=== PATIENT | male | born 1955 | race Two or more races ===

== ENCOUNTER 2019-04-09 13:21 | Inpatient (IN) | payer MEDICARE, MEDICAID ==
[~2019-04-09] VITALS: Ht 175.3 cm; Wt 72.1 kg
--- NOTE | 2019-04-09 13:25 | NUR ---
Pt is under 1:1 supervision by senior network security architect.
--- NOTE | 2019-04-09 14:11 | NUR ---
PT REFUSED XRAY, DR GRIGSBY AWARE.
[2019-04-09 14:19] LABS: BASOPHILS % (AUTO) 0.8 % (0.0-2.0); EOSINOPHILS # (AUTO) 0.1 K/uL (0.0-0.7); HEMATOCRIT 44.1 % (36.7-47.1); HEMOGLOBIN 14.8 g/dL (12.5-16.3); LYMPHOCYTES % (AUTO) 21.4 % (20.5-51.5); MEAN CORPUSCULAR HEMOGLOBIN 32.1 uug (23.8-33.4); MEAN CORPUSCULAR HGB CONC 34 g/dL (32.5-36.3); MEAN CORPUSCULAR VOLUME 95.5 fL (73.0-96.2); MONOCYTES # (AUTO) 0.6 K/uL (2.0-10.0); MONOCYTES % (AUTO) 11.4 % (0.0-11.0); NEUTROPHILS # (AUTO) 3.1 K/uL (1.8-8.9); NEUTROPHILS % (AUTO) 63.4 % (38.5-71.5); PLATELET COUNT (AUTO) 136 K/uL (152-348); RED BLOOD CELL COUNT(AUTO) 4.61 MIL/uL (4.06-5.63); WHITE BLOOD COUNT (AUTO) 4.9 K/uL (3.6-10.2)
[2019-04-09 14:27] LABS: CREATININE 0.7 mg/dL (0.6-1.3); POTASSIUM 4.4 mmol/L (3.5-5.1)
[2019-04-09 14:29] LABS: ETHANOL < 3 MG/DL (0-0)
[2019-04-09 14:32] LABS: BILIRUBIN,DIRECT 0.1 mg/dL (0.0-0.2); BILIRUBIN,TOTAL 0.4 mg/dL (0.2-1.0)
[2019-04-09 14:35] LABS: *AMPHETAMINE, URINE NEGATIVE (NEGATIVE); *BARBITURATE, URINE NEGATIVE (NEGATIVE); *CANNABINOID, URINE NEGATIVE (NEGATIVE); *COCCAINE, URINE NEGATIVE (NEGATIVE); *OPIATE, URINE NEGATIVE (NEGATIVE); *PHENCYCLIDINE SCREEN,URINE NEGATIVE (NEGATIVE)
--- NOTE | 2019-04-09 14:53 | NUR ---
pending lab results & medical clearance by our ER doctor @this time
[2019-04-09] MEDS ORDERED: ESCI5TAB PO (15:13)
[2019-04-09] MEDS ORDERED: RISP3TAB5 PO (15:13)
[2019-04-09] MEDS ORDERED: LORA-259 PO (15:13)
[2019-04-09 15:45] VITALS: BP 102/57
--- NOTE | 2019-04-09 15:45 | NUR ---
Gps/Needle Grader- Admitted a 64 years old male via wheel chair from ER with the complaints received from her sister Erika, patient refusing to take his medications, not sleeping, uncooperative , not seeing his Psychiatrist ( Dr Svitlana Castle [phone]), refusing to bathed/shower, guarded, irritable , secretive.Patient refused to answer questions during assessments, patient's sister, Erika who is the conservator answered some of the questions. When tried to weigh patient , stated" do not dare to touch me". Report received from Jill LORENZO RN . PT ambulatory, redirected to his room. Oriented to unit settings. Routine admission care done.
[2019-04-09] MEDS ORDERED: LORAZEPAM 0.5 MG TABLET PO PRN (16:30)
[2019-04-09] MEDS ORDERED: TEMAZEPAM 7.5 MG CAPSULE PO PRN (16:30)
[2019-04-09] MEDS ORDERED: MAGNESIUM HYDROXIDE 30 ML LIQUID UDC PO PRN (17:15)
[2019-04-09] MEDS ORDERED: ACETAMINOPHEN 325 MG TABLET PO PRN (17:15)
[2019-04-09 19:46] VITALS: BP 111/66
--- NOTE | 2019-04-10 05:46 | NUR ---
GPS: Remain calm and cooperative. ambulatory self care. no agitation noted.resting in bed comfortably. slept 7:45 hrs through the night.
[2019-04-10 07:30] VITALS: BP 98/57
[2019-04-10] MEDS: risperiDONE 0.5 MG TABLET PO SCH ×2 (13:02→21:15)
[2019-04-10] MEDS: BENZTROPINE MESYLATE 0.5 MG TABLET PO SCH ×2 (13:02→17:29)
--- NOTE | 2019-04-10 15:27 | NUR ---
Initial Discharge Plan: Patient is a 64 year old male who currently lives at home [[address], [address], [place] [address]] with his sister/LPS Conservator, Erika Hooker [ ]. Per Erika, she would like patient to either go to snf facility or an assisted living. warehouse assembly worker will continue to collaborate with patient, LPS Conservator, and MD on a safe and proper discharge.
[2019-04-10 16:00] VITALS: BP 98/55
--- NOTE | 2019-04-10 18:18 | NUR ---
Gps/Manufacturing Technologist- Compliant with his routine meds. isolative, not interactive, encouraged to eat in the dinning room ,refused.
--- NOTE | 2019-04-10 20:00 | NUR ---
RECEIVED PATIENT IN HIS ROOM SITTING IN HIS BED.HE IS NOTED A/O X1. POOR HISTORIAN. POOR INSIGHT NOTED INTO THE REASON FOR HIS ADMISSION TO MHU. FLAT AFFECT, ISOLATIVE, WITHDRAWN. UPON INTERVIEW, PATIENT KEPT STATING, "NO THANK YOU, NO THANK YOU". PATIENT WAS REASSURED FOR HIS SAFETY. V/S STABLE AT THIS TIME. WILL CONTINUE TO MONITOR.
[2019-04-10 22:00] VITALS: BP 99/60
[2019-04-11 07:30] VITALS: BP 101/64
[2019-04-11] MEDS: risperiDONE 0.5 MG TABLET PO SCH ×3 (08:54→20:24)
[2019-04-11] MEDS: BENZTROPINE MESYLATE 0.5 MG TABLET PO SCH ×2 (08:54→16:21)
[2019-04-11 15:23] VITALS: BP 98/59
--- NOTE | 2019-04-11 18:50 | NUR ---
Gps/Egg Setter- Patient took a shower this pm, aparently patient's sister Renned noted his brigitte pants got wet from the shower, offered patient to wear pajama bottom while waiting for the pants to get dry, patient refused, Pako will come back to brink pants from home.
[2019-04-11 20:24] VITALS: BP 98/54
[2019-04-12 07:30] VITALS: BP 121/46
[2019-04-12] MEDS: BENZTROPINE MESYLATE 0.5 MG TABLET PO SCH ×2 (08:15→17:00)
[2019-04-12] MEDS: risperiDONE 0.5 MG TABLET PO SCH ×2 (08:19→20:43)
--- NOTE | 2019-04-12 09:18 | NUR ---
Gps/Golf Starter And Ranger- Continue to show compliance with his routine medications. Noted patient coming out of his room, goes to TV room , min.interactions with staff. Had been redirectable.
--- NOTE | 2019-04-12 15:58 | NUR ---
Gps/Consultative Sales Associate- Patient's sister in to visit patient but patient does not want to be bothered.
[2019-04-12 16:05] VITALS: BP 130/110
--- NOTE | 2019-04-12 20:00 | NUR ---
RECEIVED PATIENT IN HIS ROOM, HE IS NOTED AWAKE A/O X 2. CALM AND PLEASANT UPON APPROACHED. HE IS ABLE TO AMBULATE WITH STEADY GAIT AND ABLE TO MAKE HIS NEEDS KNOWN. PATIENT NOTED LESS ISOLATIVE. HE SPEAKS WHISPERING AND WHEN ASKED WHY, HE SAID, "I DON'T KNOW". AFFECT IS BLUNTED, DENIES SI.HI.VH.AH. PATIENT'S V/S STABLE AT THIS TIME. PT WAS REASSURED FOR HIS SAFETY. SAFETY AND FALL PRECAUTION ARE IN PLACED. WILL CONTINUE TO MONITOR.
[2019-04-12 22:00] VITALS: BP 97/51
[2019-04-13 07:30] VITALS: BP 90/54
[2019-04-13] MEDS: risperiDONE 0.5 MG TABLET PO SCH (08:06)
[2019-04-13] MEDS: BENZTROPINE MESYLATE 0.5 MG TABLET PO SCH ×2 (08:06→16:10)
--- NOTE | 2019-04-13 09:56 | NUR ---
Firearms Report: drywall worker completed and submitted a [employer] firearms report for a 5150 DTS certification.
[2019-04-13 16:01] VITALS: BP 90/56
--- NOTE | 2019-04-13 18:36 | NUR ---
patient is alert, oriented x1, no sob, resp even nonlabored, skin warm and dry to touch, patient noted with delusions, ambulating back and forth in the hallway, noted with anxious and suspicious mood. however patient is cooperative with meds and treatment plan, no agressive, or combative behavior noted.
[2019-04-13] MEDS: RISPERIDONE 3 MG PO SCH (20:15)
[2019-04-13 20:38] VITALS: BP 102/45
[2019-04-13] MEDS ORDERED: risperiDONE 2 MG TABLET PO SCH ×2 (21:00)
[2019-04-14 07:30] VITALS: BP 92/45
[2019-04-14] MEDS: BENZTROPINE MESYLATE 0.5 MG TABLET PO SCH ×2 (08:01→16:35)
[2019-04-14] MEDS: RISPERIDONE 3 MG PO SCH ×2 (08:01→20:05)
[2019-04-14 15:00] VITALS: BP 100/53
[2019-04-14 20:36] VITALS: BP 104/62
[2019-04-15 07:30] VITALS: BP 106/62
[2019-04-15] MEDS: BENZTROPINE MESYLATE 0.5 MG TABLET PO SCH ×2 (08:00→16:25)
[2019-04-15] MEDS: RISPERIDONE 3 MG PO SCH ×2 (08:00→20:07)
[2019-04-15 16:00] VITALS: BP 95/59
--- NOTE | 2019-04-15 16:35 | NUR ---
Discharge planning: spring floor service worker called and spoke with patient sister/LPS Conservator, Erika Hooker [[phone]], regarding patient discharge plan. Per Erika, she would like patient to go to a halfway facility. Specifically Erika is requesting the [facility] stating she has spoken with the facility about patient. spring floor service worker was agreeable with Erika about patient going to a SNF, but did inform Erika that the [facility] is very selective with the patients they admit and that patient may not be accepted. spring floor service worker agreed to send a referral to the [facility], but inquired if reaching out to alternative facilities was an option. Erika stated "No, let's focus on the [facility]" and refused to have this publicity writer send referrals to alternative placements. spring floor service worker then facilitated conversation about patient hospital stay and informed Erika that a discharge could happen at anytime. Erika then stated that patient will "likely be there another 3-4 weeks". spring floor service worker again informed Erika that a discharge is possible at anytime and that the stay of a patient is based off of medical necessity. Erika was somewhat agreeable, but suggested this publicity writer and her follow-up tomorrow on placement status of [facility]. spring floor service worker agreed and will follow-up.
[2019-04-15 20:05] VITALS: BP 95/52
[2019-04-16 07:30] VITALS: BP 120/78
[2019-04-16] MEDS: RISPERIDONE 3 MG PO SCH ×2 (08:18→20:15)
[2019-04-16] MEDS: BENZTROPINE MESYLATE 0.5 MG TABLET PO SCH ×2 (08:18→16:56)
--- NOTE | 2019-04-16 11:48 | NUR ---
Discharge planning: Per the request of patient sister/LPS Conservator, Erika Hooker [[phone]], a referral packet was faxed to the [facility] [ ; ]. wood and wood products factory worker also called and left a voicemail for admission coordinator, Elda Desai, informing her of faxed referral and requesting a call back if patient is accepted. wood and wood products factory worker to follow-up as needed. wood and wood products factory worker also faxed referral to [facility] [ ; ] as a back-up placement. wood and wood products factory worker awaiting call back. wood and wood products factory worker spoke with patient sister, Erika, in person and informed her the referrals were sent to both facilities. Erika was agreeable. wood and wood products factory worker facilitated a second conversation [see previous note] regarding the [facility] and difficulty of patient being placed there. wood and wood products factory worker explained that there was a wait list for the [facility] and that patient may not be able to be placed there. Erika then stated that patient would likely still be admitted to MHU for another "3-4 weeks". wood and wood products factory worker explained that this may not be the case patient may progress quicker than that as he is currently med-compliant and responsive to treatment. Erika again disagreed with this video games storywriter and stated, "But, I at least see him here for another 3 weeks". wood and wood products factory worker explained that Dr. Yeh will decide when patient is ready for discharge and that if she were in disagreement with discharge that she may be served with a Medicare Letter of Denial to which Erika stated "we will cross that bridge when it comes". wood and wood products factory worker explained that if this were the case that Erika would be responsible for the hospital stay at that point which averages at $1,000/day. Erika was again unreceptive to information, but was agreeable to tour [facility] as a placement option. wood and wood products factory worker will continue to follow-up as needed. Addendum: 04/16/19 at 1343 by TOAN VANN SW 1:40pm: wood and wood products factory worker received call back from Elda, admissions clinician, at the [facility] stating that patient was not accepted due to having no "skilled need under Medicare". Addendum: 04/16/19 at 1428 by TOAN VANN SW 1:45pm: wood and wood products factory worker received confirmation from Drea, admissions key operator, at [facility] that patient has been accepted to facility. 1:53pm: wood and wood products factory worker received voicemail from Erika Hooker, patient sister, stating that she had researched [facility] and states that the facility is "absolutely not acceptable" to place patient in. Erika went on to say that the facility is "below average" and that she "cannot take legal responsibility for placing him there". Erika requesting that alternative placement be found. wood and wood products factory worker to follow-up.
--- NOTE | 2019-04-16 13:00 | NUR ---
PT'S SISTER BROUGHT HIM OUTSIDE FOOD (IN-AND-OUT) HAMBURGER. PER SISTER, HIS FAVORITE FOOD. PT THREW AWAY THE FOOD AFTER THE SISTER LEFT. CANNOT EXPLAIN WHY.
--- NOTE | 2019-04-16 15:50 | NUR ---
Gps/Graphic Design Specialist- Isolative, stayed in his room in bed most of the morning.Patient's sister Erika brought sandwich(hamburger) , but per patient he threw it away .Not observed patient eating it.
[2019-04-16 16:00] VITALS: BP 98/53
[2019-04-16 20:00] VITALS: BP 90/53
[2019-04-17 07:30] VITALS: BP 93/49
[2019-04-17] MEDS: RISPERIDONE 3 MG PO SCH ×2 (09:04→20:14)
[2019-04-17] MEDS: BENZTROPINE MESYLATE 0.5 MG TABLET PO SCH (09:04)
--- NOTE | 2019-04-17 15:59 | NUR ---
Discharge planning: hot mill worker faxed SNF referral to [facility] [ ; ] per patient sister/LPS Conservator, Erika Hooker [[phone]], request. hot mill worker did inform Erika that a diagnosis of "Dementia" is required to be accepted to facility, which patient does not have. Erika stated that patient has "aspects of Dementia" and insisted referral be sent. hot mill worker awaiting call back from visual merchandising coordinator, Chanell Finley. hot mill worker sent faxed SNF referral to [facility] [ ; ]. hot mill worker awaiting call back from visual merchandising coordinatorAurea.
[2019-04-17 16:00] VITALS: BP 95/56
[2019-04-17] MEDS ORDERED: BENZTROPINE MESYLATE 0.5 MG TABLET PO SCH (17:00)
[2019-04-17] MEDS: BENZTROPINE MESYLATE 1 MG TABLET PO SCH (17:37)
[2019-04-17] MEDS ORDERED: HOME MED MISCELLANEOUS XX SCH (17:45)
[2019-04-17 19:44] VITALS: BP 99/62
[2019-04-18 07:30] VITALS: BP 90/55
[2019-04-18] MEDS: BENZTROPINE MESYLATE 1 MG TABLET PO SCH ×2 (08:26→16:31)
[2019-04-18] MEDS: RISPERIDONE 3 MG PO SCH ×3 (08:27→20:39)
[2019-04-18] MEDS ORDERED: risperiDONE 1 MG TABLET PO SCH (13:00)
[2019-04-18 16:00] VITALS: BP 88/57
[2019-04-18 19:45] VITALS: BP 99/49
[2019-04-19 07:30] VITALS: BP 90/60
[2019-04-19] MEDS: BENZTROPINE MESYLATE 1 MG TABLET PO SCH ×2 (08:38→16:32)
[2019-04-19] MEDS: RISPERIDONE 3 MG PO SCH ×3 (08:39→20:00)
[2019-04-19 16:00] VITALS: BP 92/56
[2019-04-19 20:00] VITALS: BP 92/54
[2019-04-20 07:30] VITALS: BP 90/54
[2019-04-20] MEDS: RISPERIDONE 3 MG PO SCH ×3 (09:03→21:00)
[2019-04-20] MEDS: BENZTROPINE MESYLATE 1 MG TABLET PO SCH ×2 (09:03→16:59)
[2019-04-20 15:45] VITALS: BP 99/50
--- NOTE | 2019-04-20 16:15 | NUR ---
LPS Conservatorship Note: (ZE # : [id number]) Pt. repeated stated throughout the day that he had a WRIT hearing tomorrow. At 1448, Memo MILLER found a fax notification that pt. had a WRIT hearing tomorrow and that [facility] needed to provide transportation. This sql report writer spoke with Ana Rosa at 1600 at [facility] ([phone]). Ana Rosa confirmed that the courts had to go through the motions but that patient's LPS conservatorship status was in place and noted by the [place]. Ana Rosa confirmed it was not necessary to transport this patient to court tomorrow. Dante, nurse discharge, was notified as well as David's patient's nurse. Addendum: 04/21/19 at 1009 by IRINA VERGARA Error: The LPS conservatorship note above dated 04/20/19 is not for this patient. Please disregard. This note will now be placed in correct chart.
[2019-04-20 19:59] VITALS: BP 86/53
--- NOTE | 2019-04-21 04:59 | NUR ---
PATIENT ALERT AND COOPERATIVE WITH CARE THROUGHOUT THE ENTIRE NIGHT, PATIENT RISPERDAL 2100 DOSE WAS HELD DUE TO LOW BP. PATIENT HAS NO COMPLAIN OF PAIN NOR DISCOMFORT, CONT TO MONITOR.
[2019-04-21 07:30] VITALS: BP 90/54
[2019-04-21] MEDS: RISPERIDONE 3 MG PO SCH ×2 (08:45→08:52)
[2019-04-21] MEDS: BENZTROPINE MESYLATE 1 MG TABLET PO SCH ×2 (08:45→08:52)
[2019-04-21 09:23] VITALS: BP 100/55
--- NOTE | 2019-04-21 09:45 | NUR ---
DC NOTE: Patient will be discharged to [facility] [[address] [place] [address]; ] and transportation will be provided by ambulance at 11:00am. Please arrange ambulance transportation for this patient. Acceptance to facility was received by [facility] plastic molding operator, who states they are ready to accept the patient today. Patient is AxOx1-2, denies suicidal ideation, is able to plan for self-care, and is agreeable with discharge plan. tar worker has called and spoken with patient sister/LPS Conservator, Erika Hooker [[phone]], who is aware and agreeable with discharge plan. Patient will follow-up with Dr. Yeh [psychiatrist] and Dr. Victoria [forest fire management officer] at the facility. Patient has also been provided with mental health resources including [facility] Crisis Line , Kiarra Archer , and the National Suicide Prevention Lifeline .
--- NOTE | 2019-04-21 11:00 | NUR ---
GPS: Nursing Notes: Discharge Notes: Patient is awake and responding to his name, cooperative with nursing care, following staff directions, compliant with his medications, denies any SI/HI, denies any AH/VH, denies any pain or discomfort, denies any SOB, discharge to [facility] [place] [address] [place] [address] , report given to nursing water service supervisor - JEET Garcia, took all his belongings with him, transported to facility via ambulance. mental health worker has called and spoken with patient sister/LPS Conservator, Erika Hooker [[phone]], who is aware and agreeable with discharge plan. Patient will follow-up with Dr. Yeh [psychiatrist] and Dr. Victoria [reactor operator] at the facility. Patient has also been provided with mental health resources including [facility] Crisis Line , [facility]ra Archer , and the National Suicide Prevention Lifeline .
--- NOTE | 2019-04-21 12:14 | NUR ---
Social service note: cargo worker received voicemail from patient sister/LPS conservator, Erika Hooker [[phone]], from 04/20/2019 at 4:36pm. Voicemail received this morning. Erika stated in voicemail that she was looking for patient photo ID and stated that it was in patient jacket pocket. cargo worker spoke with patient prior to his discharge and he stated that he had no photo ID in his pocket and that it was "at my residence". cargo worker then checked patient belongings inventory list and saw that no photo ID had been listed. cargo worker then called Erika back and informed her of the above stated information. Erika stated that she was sure the ID was in patient pocket as the "[facility] police booking officer told me he put it there". Again this conventional underwriter stated that no ID had been inventoried and patient denied having it. cargo worker suggested that it may have fallen out of pocket in transit from patient home to hospital. Erika agreed to call [employer] officer and requested the phone number for the ambulance used to transport patient to hospital initially. cargo worker called and spoke with Emergency Department, Anish, who stated that there is no record of the names of private ambulances that transport patients to the hospital. Anish stated that patient was transported by private ambulance and that no name was provided. cargo worker then called Erika back and left a voicemail informing her of this information and provided contact information should she need to speak further. cargo worker to follow-up as needed.
== END 2019-04-21 11:00 | DRG 885 ==
LOC: ER 13:21 → GPS 15:23
PROVIDERS: ADMIT Psychiatry & Neurology Psychosomatic Medicine; ATTEND Nurse Practitioner Acute Care
DX: F20.9 Schizophrenia, unspecified (principal); G93.41 Metabolic encephalopathy; D69.3 Immune thrombocytopenic purpura; E46 Unspecified protein-calorie malnutrition; G40.909 Epilepsy, unspecified, not intractable, without status epilepticus; Z79.899 Other long term (current) drug therapy; Z91.14 Patient's other noncompliance with medication regimen; R79.89 Other specified abnormal findings of blood chemistry
CPT/HCPCS: 36415; 80307; 85025; 93005; A4663; G0480